=== PATIENT | female | born 1990 | race Caucasian/White ===

== ENCOUNTER 2025-01-01 11:41 | Emergency (ER) | payer OTHER ==
[2025-01-01] MEDS: KETOROLAC 15 MG/ML 1 ML VIAL IVP STA (13:01)
[2025-01-01 13:13] LABS: Basophils # (A) 0.02 10*3/uL (0.00-0.10); Basophils % (A) 0.2 %; Eosinophils # (A) 0.06 10*3/uL (0.04-0.35); Eosinophils % (A) 0.6 %; HCT 40.4 % (37.2-46.3); HGB 13.6 g/dL (12.0-15.0); Lymphocytes # (A) 0.83 10*3/uL (0.90-5.00); Lymphocytes % (A) 8.3 %; MCH 30.3 pg (27.0-32.0); MCHC 33.7 g/dL (32.0-37.0); Mean Platelet Volume 9.9 fL (9.5-12.2); Monocytes # (A) 0.51 10*3/uL (0.20-1.00); Monocytes % (A) 5.1 %; Neutrophils # (A) 8.55 10*3/uL (1.80-7.70); Neutrophils % (A) 85.6 %; Platelet Count 290 10*3/uL (140-440); RBC 4.49 10*6/uL (4.10-5.20); RDW 12.5 % (11.5-14.5); WBC 9.99 10*3/uL (4.50-10.00)
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
[2025-01-01 13:33] LABS: ALT 28 U/L (4-34); AST 37 U/L (14-36); African American GFR (CKD) >90 (>60 ml/min/1.73 sqM); Albumin 4.6 g/dL (3.5-5.0); Alkaline Phosphatase 52 U/L (38-126); Anion Gap 11 mmol/L; Blood Urea Nitrogen 21 mg/dL (7-17); Calcium 9.7 mg/dL (8.4-10.2); Carbon Dioxide 23 mmol/L (22-30); Chloride 103 mmol/L (98-107); Glucose 101 mg/dL (74-99); Non-African American GFR(CKD) >90 (>60 ml/min/1.73 sqM); Potassium 3.8 mmol/L (3.5-5.1); Sodium 137 mmol/L (137-145); Total Bilirubin 0.4 mg/dL (0.2-1.3); Total Protein 7.2 g/dL (6.3-8.2)
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
[2025-01-01 14:45] VITALS: BP 115/75; PULSE 90; RESP 18; TEMP 98.5
== END 2025-01-01 14:50 | disposition home or self-care (01) ==
LOC: EC 11:41
DX: R51.9 Headache, unspecified (principal); Z87.891 Personal history of nicotine dependence; V89.2XXA Person injured in unspecified motor-vehicle accident, traffic, initial encounter
CPT/HCPCS: 36415; 93005; 80053; 85025; 72125; 70450; 71260; 74177; 99285; 96374; J1885